=== PATIENT | male | born 1930 | race Caucasian/White ===

== ENCOUNTER 2016-09-23 21:21 | Emergency (ER) | payer MEDICARE, BC ==
[2016-09-23] MEDS ORDERED: Adacel (T-DAP) 0.5 ML VIAL ONE (22:21)
== END 2016-09-23 22:49 | disposition home or self-care (01) ==
LOC: BURERS 21:21
DX: S51.012A Laceration without foreign body of left elbow, initial encounter (principal); I10 Essential (primary) hypertension; W18.30XA Fall on same level, unspecified, initial encounter
CPT/HCPCS: 12002; 90471; 90715

== ENCOUNTER 2017-07-20 19:28 | Emergency (ER) | payer MEDICARE, BC ==
[2017-07-20] MEDS ORDERED: Bacitracin Zinc 1 Packet ONE (20:23)
--- NOTE | 2017-07-20 21:36 | RAD ---
RIGHT ELBOW 07/20/17 Multiple views show degenerative changes in the joint but no acute fracture or area of bony destructi on. There may be a small joint effusion. Bony spurring is prominent. IMPRESSION: Chronic changes as noted. POS: HOME
--- NOTE | 2017-07-20 21:40 | CT ---
CT OF THE BRAIN WITHOUT CONTRAST 07/20/[address] shows mild generalized atrophy. The ventricles are appropriate in size for age and a trophy. There is no sign of parenchymal bleeding or extra-axial hematoma. There is no sign of mass, e camacho, or acute stroke. Some minimal hypodense areas are seen in the deep white matter which are sugge stive of chronic ischemic change. The calvarium appears intact. The sphenoid sinus and mastoid air ce lls are clear. IMPRESSION: No acute intracranial findings. POS: HOME
--- NOTE | 2017-07-20 22:21 | RAD ---
PORTABLE CHEST 07/20/17 An AP portable film at 2101 shows a rounded area in the right hilum that measures 2.5 cm in size. I c annot exclude this being a small mass, though it could be pulmonary artery. I do understand, however, that there is a history of a positive finding in the lungs on a recent PET scan, so this could be re al. The lungs are otherwise clear. The heart is normal in size. Cardiac pacer is in place. The trache a is midline. IMPRESSION: 2.5 cm rounded area in the right hilum. Cannot rule out enlarged node and/or mass. Correlate with the recent PET scan. Findings discussed with Dr. Gonzales at 2123 on 07/20/17. POS: HOME
--- NOTE | 2017-07-20 22:26 | RAD ---
RIGHT SHOULDER THREE VIEWS 07/20/17 There is complete loss of the space between the humeral head and acromion indicating chronic rotator cuff thinning with resulting superior subluxation of the humeral head. There is thinning of the acrom ion itself as the result. Calcification in tendons around the rotator cuff region could be seen. Ther e was no area of bony destruction to suggest metastatic disease. There is a rounded 2.5 cm area in th e right hilum. See chest x-ray for further comments. 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 POS: HOME
== END 2017-07-20 21:39 | disposition home or self-care (01) ==
LOC: BURERS 19:28
DX: S00.91XA Abrasion of unspecified part of head, initial encounter (principal); S50.311A Abrasion of right elbow, initial encounter; S60.412A Abrasion of right middle finger, initial encounter; I10 Essential (primary) hypertension; I48.91 Unspecified atrial fibrillation; M19.90 Unspecified osteoarthritis, unspecified site; Z79.899 Other long term (current) drug therapy; W07.XXXA Fall from chair, initial encounter
CPT/HCPCS: 70450; 71045

== ENCOUNTER 2018-03-11 21:47 | Emergency (ER) | payer MEDICARE, BC | END 2018-03-11 22:43 | disposition home or self-care (01) | LOC: BURERS 21:47 | DX: Z43.1 Encounter for attention to gastrostomy (principal); I10 Essential (primary) hypertension; I48.91 Unspecified atrial fibrillation; Z79.899 Other long term (current) drug therapy; Z79.82 Long term (current) use of aspirin | CPT/HCPCS: 99282 ==

== ENCOUNTER 2018-06-16 01:52 | Emergency (ER) | payer MEDICARE, BC ==
[2018-06-16] MEDS ORDERED: Fentanyl 100 MCG/2 ML VIAL ONE ×2 (02:30→03:04)
[2018-06-16 02:41] LABS: #Basophils 0.1 thou/uL (0.0-0.2); #Eosinphils 0.1 thou/uL (0.0-0.7); #Monocytes 1.1 thou/uL (0.11-0.59); #Neutrophils 10.8 thou/uL (1.40-6.50); %Basophils 0.5 % (0.0-1.0); %Eosinophils 0.5 % (0.0-10.0); %Lymphocytes 19.8 % (21.0-51.0); %Monocytes 7.4 % (0.0-10.0); %Neutrophils 71.9 % (42.0-75.0); Hemoglobin 14.1 g/dL (14.0-18.0); Mean Corpuscular HGB CONC 31.3 g/dL (32.0-36.0); Mean Corpuscular Hemoglobin 27.7 pg (27.0-31.0); Mean Corpuscular Volume 88.4 fL (78.0-98.0); Mean Platelet Volume 6.7 fL (7.4-10.4); Platelet Count 235 thou/uL (130-400); RBC Distribution Width 17.1 % (11.5-14.5)
[2018-06-16 02:47] LABS: INR-International Normal Ratio 1.2; PTT 27.9 SEC (22.9-36.1); Prothrombin Time 15.4 SEC (12.0-14.7)
== END 2018-06-16 03:10 | disposition short-term general hospital (02) ==
LOC: BURERS 01:52
DX: M79.81 Nontraumatic hematoma of soft tissue (principal); I10 Essential (primary) hypertension; I48.91 Unspecified atrial fibrillation; Z79.899 Other long term (current) drug therapy; Z79.82 Long term (current) use of aspirin
CPT/HCPCS: 85025; 85610; 85730; 96374; 96376; J3010

== ENCOUNTER 2018-09-02 22:28 | Emergency (ER) | payer MEDICARE, BC ==
--- NOTE | 2018-09-03 08:52 | RAD ---
MANDIBLE FOUR VIEWS: Indications: Injury. 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 Numerous post-operative clips. No acute fracture identified. POS: [facility]
--- NOTE | 2018-09-03 09:08 | CT ---
PRELIMINARY REPORT/[facility]/EMERGENTY AFTER-HOURS PROCEDURE CT Head Without Contrast EXAM DATE/TIME: 09/02/2018 11:19 PM CLINICAL HISTORY: 88 years old, male; Injury or trauma; Fall; Initial encounter; Blunt trauma (contusions or hematomas) ; Consciousness not specified; Injury date: 09/02/18 TECHNIQUE: Axial computed tomography images of the head/brain without contrast. All CT scans at this facility use at least one of these dose optimization techniques: automated expos ure control; mA and/or kV adjustment per patient size (includes targeted exams where dose is matched to clinical indication); or iterative reconstruction. Coronal reformatted images were created and rev iewed. COMPARISON: No relevant prior studies available. FINDINGS: Brain: Volume loss and chronic small vessel ischemic change. 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 No brain ap a. No intracranial hemorrhage. Ventricles: Normal. No ventriculomegaly. Bones/joints: Unremarkable. No acute fracture. Sinuses: Mucosal thickening and secretions in the sphenoid sinuses, without fluid level. Mastoid air cells: Visualized mastoid air cells are unremarkable. No mastoid effusion. Soft tissues: Unremarkable. IMPRESSION: No acute brain findings. Thank you for allowing us to participate in the care of your patient. Dictated and Authenticated by: Silver Jones MD 09/03/2018 12:08 AM Central Time ([place] & [place]) FINAL REPORT CT HEAD: Technique: Multiple axial tomograms were obtained through the head without IV enhancement. FINDINGS: No evidence of acute process. I am in agreement with the preliminary report. POS: [facility]
== END 2018-09-03 | disposition home or self-care (01) ==
LOC: BURERS 22:28
DX: S81.812A Laceration without foreign body, left lower leg, initial encounter (principal); S00.83XA Contusion of other part of head, initial encounter; T81.89XA Other complications of procedures, not elsewhere classified, initial encounter; I10 Essential (primary) hypertension; I48.91 Unspecified atrial fibrillation; Z79.82 Long term (current) use of aspirin; Z79.899 Other long term (current) drug therapy; W19.XXXA Unspecified fall, initial encounter
CPT/HCPCS: 12001; 70110; 70450